=== PATIENT | male | born 1975 | race Caucasian/White ===

== ENCOUNTER 2019-09-10 09:15 | Day surgery (SDC) | payer BC ==
[2019-09-10] MEDS ORDERED: LACTATED RINGERS 1,000 ML IV SCH (09:25)
[2019-09-10 09:34] VITALS: TEMP 97.8
[2019-09-10] MEDS ORDERED: LACTATED RINGERS 1,000 ML IV ONE (09:35)
[2019-09-10] MEDS ORDERED: LIDOCAINE 1% 20 ML VIAL (10MG/ML) FOR IV START INTRADERMA ONE (09:35)
[2019-09-10] MEDS ORDERED: GLYCOPYRROLATE 0.2 MG/ML 2 ML VIAL ONE (10:09)
[2019-09-10] MEDS ORDERED: LIDOCAINE 1% INJ 10MG/ML (20 ML MDV) ONE (10:09)
[2019-09-10] MEDS ORDERED: MIDAZOLAM 2 MG/2 ML VIAL ONE (10:09)
[2019-09-10] MEDS ORDERED: PROPOFOL 10 MG/ML 20 ML VIAL IV ONE (10:09)
[2019-09-10] MEDS ORDERED: KETAMINE 10 MG/ML 20 ML VIAL ONE (10:09)
--- NOTE | 2019-09-10 10:36 | P.PCN ---
Date of Procedure: 09/10/19 Description of Procedure: BRIEF HISTORY: Patient is a 44-year-old male with long-standing history of GERD presenting for outpatient EGD for further evaluation of symptoms. Reports 10 year history of GERD treated with omeprazole. Previously taking the medicine at night he is now taking her medicine in the morning with better control of his symptoms. PROCEDURE PERFORMED: Esophagogastroduodenoscopy with biopsy. PREOPERATIVE DIAGNOSIS: GERD. ESTIMATED BLOOD LOSS: Minimal. IV sedation per anesthesia. PROCEDURE: After informed consent was obtained, the patient was brought into the endoscopy unit. IV sedation was administered by Anesthesia under continuous monitoring. Initially the Olympus GIF-190 video endoscope was inserted into the mouth. Esophagus intubated without any difficulty. It was gradually advanced into the stomach and duodenum and carefully examined. The bulb and the second part of the duodenum appeared normal, with biopsies taken. The scope at this time was withdrawn to the stomach, adequately insufflated with air, and upon careful examination, mucosa of the antrum, body, cardia and the fundus appeared normal grossly normal except for some mild punctate erythema in the antrum and body suggestive of mild gastritis with biopsies taken. There were also a few polyps in the body and fundus suggestive of fundic gland polyps which were biopsied. The scope was then withdrawn into the esophagus. The GE junction was located at 42 cm from the incisors and was biopsied. The esophagus appeared normal. There were no erosions or ulcerations seen and the patient tolerated the procedure well. IMPRESSION: 1. Mild gastritis antrum body and biopsied. 2. Gastric polyps (apparent be fundic gland polyps) biopsied. 3. Biopsies of the duodenum and GE junction. RECOMMENDATIONS: The findings of this examination were discussed with the patient and his father. Okay to resume diet. Okay to resume medication. Await pathology from biopsies. Continue current medical treatment.
[2019-09-10 10:55] VITALS: BP 105/70; PULSE 95; RESP 16
== END 2019-09-10 11:02 | disposition home or self-care (01) ==
LOC: ORWHC2ENDO 09:15
PROVIDERS: ATTEND Internal Medicine
DX: K29.50 Unspecified chronic gastritis without bleeding (principal); K21.9 Gastro-esophageal reflux disease without esophagitis; K31.7 Polyp of stomach and duodenum; I10 Essential (primary) hypertension; E66.9 Obesity, unspecified; Z79.899 Other long term (current) drug therapy; Z68.33 Body mass index [BMI] 33.0-33.9, adult; Z88.7 Allergy status to serum and vaccine
CPT/HCPCS: 88305; 43239; J2250; J2001; J2704